=== PATIENT | female | born 1995 | race Caucasian/White ===

== ENCOUNTER 2017-06-19 22:29 | Observation (INO) | payer MEDICAID ==
[~2017-06-19] VITALS: Ht 149.9 cm; Wt 62.6 kg
[2017-06-19] MEDS ORDERED: PNV1TABL76 MT (23:04)
== END 2017-06-19 23:35 | disposition home or self-care (01) ==
LOC: L&D 22:29
PROVIDERS: ADMIT Obstetrics & Gynecology; ATTEND Obstetrics & Gynecology
DX: O62.9 Abnormality of forces of labor, unspecified (principal); Z3A.39 39 weeks gestation of pregnancy
CPT/HCPCS: 99281; G0378

== ENCOUNTER 2017-06-27 03:47 | Observation (INO) | payer MEDICAID ==
[~2017-06-27] VITALS: Ht 149.9 cm; Wt 63.5 kg
[~2017-06-27 03:47] MED LIST: PNV1TABL76 MT
[2017-06-27] MEDS ORDERED: OCD MT (04:43)
== END 2017-06-27 05:15 | disposition home or self-care (01) ==
LOC: L&D 03:47
PROVIDERS: ADMIT Obstetrics & Gynecology; ATTEND Obstetrics & Gynecology
DX: O26.893 Other specified pregnancy related conditions, third trimester (principal); R10.30 Lower abdominal pain, unspecified; Z3A.41 41 weeks gestation of pregnancy
CPT/HCPCS: 99281; G0378

== ENCOUNTER 2017-06-27 18:56 | Inpatient (IN) | payer MEDICAID ==
[~2017-06-27] VITALS: Ht 149.9 cm; Wt 67.1 kg
[~2017-06-27 18:56] MED LIST changes: +OCD MT
[2017-06-27] MEDS ORDERED: CARBOPROST TROMETHAMINE 250 MCG/ML AMPUL IM PRN (20:00)
[2017-06-27] MEDS ORDERED: LIDOCAINE HCL 1% 20ML VIAL (Pyxis) INJ INFIL SCH (20:00)
[2017-06-27] MEDS ORDERED: NALOXONE HCL 0.4 MG/ML 1ML VIAL IM PRN (20:00)
[2017-06-27] MEDS ORDERED: METHYLERGONOVINE MALEATE 0.2 MG/ML IM PRN (20:00)
[2017-06-27] MEDS ORDERED: PENICILLIN G POTASSIUM 5 MMU in DEXT 5% WATER 100 ML IV SCH (20:26)
[2017-06-27] MEDS: LACTATED RINGERS 1,000 ML IV SCH ×2 (20:31→22:21)
[2017-06-27 20:45] LABS: BASOPHILS % 0.4 % (0.0-2.0); EOSINOPHILS % 0.7 % (0.0-5.0); HEMATOCRIT. 41.1 % (36.0-48.0); HEMOGLOBIN. 13.9 g/dL (12.0-16.0); LYMPHOCYTES % 23.3 % (20.0-50.0); MEAN CORPUSCULAR HEMOGLOBIN 30.8 pg (28.0-32.0); MEAN CORPUSCULAR VOLUME 90.7 fL (81.0-99.0); MEAN PLATELET VOLUME 10.8 fl (7.4-10.4); MONOCYTES % 9.7 % (2.0-8.0); NEUTROPHILS % 65.9 % (40.0-76.0); PLATELET 149 x1000/uL (130-400); RED BLOOD CELL COUNT 4.53 mill/uL (4.2-5.4); RED CELL DISTRIBUTION WIDTH 14.3 % (11.6-14.6)
[2017-06-27 20:52] LABS: INR 0.9; PARTIAL THROMBOPLASTIN TIME 31.2 sec (23.4-31.0); PROTHROMBIN TIME 9.2 sec (9.4-11.6)
[2017-06-27 20:54] LABS: CLARITY URINE CLOUDY (CLEAR); COLOR URINE YELLOW (YELLOW); GLUCOSE URINE NEGATIVE (NEGATIVE); KETONES URINE NEGATIVE (NEGATIVE); LEUKOCYTE ESTERASE URINE 1+ (NEGATIVE); NITRITE URINE NEGATIVE (NEGATIVE); OCCULT BLOOD URINE 2+ (NEGATIVE); PH URINE 7.5 (4.5-8.0); PROTEIN URINE NEGATIVE (NEGATIVE); SPECIFIC GRAVITY URINE 1.021 (1.005-1.030)
[2017-06-27 21:14] LABS: *AMPHETAMINES SCREEN URINE NEGATIVE (NEGATIVE); *BARBITURATES SCREEN URINE NEGATIVE (NEGATIVE); *BENZODIAZEPINES SCREEN URINE NEGATIVE (NEGATIVE); *COCAINE SCREEN URINE NEGATIVE (NEGATIVE); CANNABINOID URINE SCREEN NEGATIVE (NEGATIVE); METHADONE URINE SCREEN NEGATIVE (NEGATIVE); OPIATES URINE SCREEN NEGATIVE (NEGATIVE); PHENCYCLIDINE URINE SCREEN NEGATIVE (NEGATIVE)
[2017-06-27 21:26] LABS: HEPATITIS B SURFACE ANTIGEN NEGATIVE; RUBELLA IGG 30.5 IU/mL (4.99-10)
[2017-06-28] MEDS ORDERED: PENICILLIN G POTASSIUM 2.5 MMU in DEXTROSE 5% WATER 50 ML IV SCH ×2
[2017-06-28] MEDS: BUTORPHANOL TARTRATE 2 MG/ML VIAL IV PRN ×2 (01:42→04:09)
[2017-06-28] MEDS ORDERED: DEXT 5%/LR + PITOCIN 20UNITS/L 1,000 ML IV SCH (06:49)
[2017-06-28] MEDS: DEXT 5%/LR + PITOCIN 20UNITS/L 1,000 ML IV SCH ×2 (06:55→07:23)
[2017-06-28] MEDS ORDERED: LANOLIN OINT 0.25 GM TUBE TOP PRN (07:00)
[2017-06-28] MEDS ORDERED: ACETAMINOPHEN WITH CODEINE 300/30MG TABLET PO PRN (07:00)
[2017-06-28] MEDS ORDERED: BISACODYL 10MG SUPP PR PRN (07:00)
[2017-06-28] MEDS ORDERED: GLYCERIN/WITCH HAZEL LEAF MEDICATED PAD TOP PRN (07:00)
[2017-06-28] MEDS ORDERED: DIPHENHYDRAMINE 25MG CAPSULE PO PRN (07:00)
[2017-06-28] MEDS ORDERED: HEMORRHOIDAL SUPP PR PRN (07:00)
[2017-06-28] MEDS ORDERED: BENZOCAINE/LANOLIN/ALOE VERA SPRAY TOP PRN (07:00)
[2017-06-28 09:00] VITALS: BP 106/58
[2017-06-28] MEDS: SIMETHICONE 80MG TABLET CHEW PO SCH ×3 (09:00→20:46)
[2017-06-28] MEDS: PRENATAL VIT/FE FUMARATE/FA TABLET PO SCH (09:00)
[2017-06-28 10:24] LABS: BASOPHILS % 0.1 % (0.0-2.0); HEMATOCRIT. 36.9 % (36.0-48.0); HEMOGLOBIN. 12.7 g/dL (12.0-16.0); LYMPHOCYTES % 7.5 % (20.0-50.0); MEAN CORPUSCULAR HEMOGLOBIN 30.9 pg (28.0-32.0); MEAN PLATELET VOLUME 10.6 fl (7.4-10.4); MONOCYTES % 8.6 % (2.0-8.0); NEUTROPHILS % 83.8 % (40.0-76.0); PLATELET 128 x1000/uL (130-400); RED BLOOD CELL COUNT 4.11 mill/uL (4.2-5.4)
[2017-06-28 16:49] VITALS: BP 116/66
[2017-06-28 20:00] VITALS: BP 119/74
[2017-06-28] MEDS: DOCUSATE SODIUM 100MG CAPSULE PO SCH (20:43)
[2017-06-28] MEDS: IBUPROFEN 400MG TABLET PO PRN (23:44)
[2017-06-29 04:55] VITALS: BP 115/70
[2017-06-29 08:00] VITALS: BP 109/69
[2017-06-29] MEDS: ACETAMINOPHEN WITH CODEINE 300/30MG TABLET PO PRN ×3 (09:04→23:01)
[2017-06-29] MEDS: PRENATAL VIT/FE FUMARATE/FA TABLET PO SCH (09:05)
[2017-06-29] MEDS: FERROUS SULFATE 325MG TABLET PO SCH ×2 (16:05→16:07)
[2017-06-29] MEDS: SIMETHICONE 80MG TABLET CHEW PO SCH ×2 (16:05→22:58)
[2017-06-29 17:30] VITALS: BP 107/68
[2017-06-29 19:30] VITALS: BP 132/75
[2017-06-29] MEDS: DOCUSATE SODIUM 100MG CAPSULE PO SCH (22:58)
[2017-06-29 23:30] VITALS: BP 112/63
[2017-06-30] MEDS ORDERED: TETANUS, DIPHTHERIA, PERTUSSIS VAC/PF 0.5ML (>7YR OLD) IM ONE (07:00)
[2017-06-30] MEDS ORDERED: INFLUENZA VIRUS VACCINE 0.5ML SYR IM ONE (07:00)
[2017-06-30] MEDS: PRENATAL VIT/FE FUMARATE/FA TABLET PO SCH (08:25)
[2017-06-30] MEDS: FERROUS SULFATE 325MG TABLET PO SCH (08:25)
[2017-06-30] MEDS: IBUPROFEN 400MG TABLET PO PRN (08:25)
[2017-06-30 08:30] VITALS: BP 105/64
== END 2017-06-30 11:30 | disposition home or self-care (01) | DRG 560 ==
LOC: L&D 18:56 → OBSVTOIN 18:56 → 7EST PP/OB 06-28 08:30
PROVIDERS: ADMIT Specialist; ATTEND Specialist
PROC: 0W8NXZZ Division of Female Perineum, External Approach (ICD-10-PCS; 2017-06-28)
PROC: 10E0XZZ Delivery of Products of Conception, External Approach (ICD-10-PCS; principal; 2017-06-28 06:22)
DX: O71.82 Other specified trauma to perineum and vulva (principal); Z37.0 Single live birth; Z3A.41 41 weeks gestation of pregnancy
CPT/HCPCS: 36415; 80305; 81001; 85025; 85610; 85730; 86592; 86703; 86762; 86850; 86900; 87340; 90686; 90715; G0378; J0595; J2310; J2540; J2590; J3490; J7060; J7120

== ENCOUNTER → 2020-02-06 | Emergency (ER) | payer MEDICAID ==
[~2020-02-06] VITALS: Ht 160 cm; Wt 59.0 kg
[2020-02-06 21:16] VITALS: BP 142/100
== END ==
LOC: ER 21:08
DX: M79.671 Pain in right foot (principal); Z53.21 Procedure and treatment not carried out due to patient leaving prior to being seen by health care provider